=== PATIENT | female | born 1950 | race Caucasian/White ===

== ENCOUNTER 2017-07-05 07:34 | Day surgery (SDC) | payer MEDICAID ==
[2017-07-05] MEDS ORDERED: Lactated Ringer's 1,000 ML IV ONE (08:26)
[2017-07-05 08:39] VITALS: O2SAT 100
[2017-07-05] MEDS ORDERED: Propofol 10 mg/ml Inj (20 ML) ONE (09:26)
[2017-07-05] MEDS ORDERED: Midazolam 2 MG/2 ML VIAL ONE (09:26)
[2017-07-05 10:34] VITALS: TEMP 96.7
[2017-07-05 10:56] VITALS: BP 113/60; PULSE 79; RESP 14
== END 2017-07-05 11:48 | disposition home or self-care (01) ==
LOC: H.ENDO 07:34
PROVIDERS: ATTEND Internal Medicine Gastroenterology
DX: Z12.11 Encounter for screening for malignant neoplasm of colon (principal); K64.8 Other hemorrhoids; K57.30 Diverticulosis of large intestine without perforation or abscess without bleeding; K30 Functional dyspepsia; K31.9 Disease of stomach and duodenum, unspecified
CPT/HCPCS: 43239; 45378; 88305; J2250; J2704; J7120